=== PATIENT | male | born 1965 | race Caucasian/White ===

== ENCOUNTER 2017-12-19 17:23 | Emergency (ER) | payer MEDICARE, OTHER ==
[~2017-12-19 17:23] MED LIST: ALBU90OI6 INH; ALBU90OI61 INH; AMOCLA500 PO; AMOX500 PO; ASPI325EC; ASPI81CH PO; ATEN25 PO; ATOR40TA; ATOR80 PO; AZIT250 PO; Amoxicillin500 MG PO; Bactrim Ds Tab1 EACH PO; CEPH500 PO; CLOP75 PO; CYCL10 PO; Cyclobenzaprine5 MG PO; DOCU100; HYDACE5; HYDACE5 PO; IBUP600 PO; IBUP800 PO; LISI5 PO; MEDICAL MARIJUANA; METO25ER; METO50ER; MORP15ER; MORP15ER PO; MULVITMINF; NAPR500 PO; NITR.4SL SL; OXYACE5T PO; OXYACE7.5T PO; OXYC10TA19; OXYC5 PO; PENVK500 PO; PRED10 PO; PRED20 PO; PROCODE120 PO; Peridex480 ML PO; Prilosec20 MG PO; RXANTBENOT AU; RXPROCODSY PO; SULTRIDS PO; TRAM50 PO; Ultram50 MG PO; Zantac150 MG PO
[2018-05-31] MEDS ORDERED: Zofran8 MG PO (18:44)
== END 2017-12-19 19:35 | disposition left against medical advice (07) ==
LOC: ER 17:23
DX: Z53.21 Procedure and treatment not carried out due to patient leaving prior to being seen by health care provider (principal)

== ENCOUNTER → 2019-11-16 | Outpatient (CLI) | payer MEDICARE, OTHER ==
[~2019-11-16] MED LIST changes: +Zofran8 MG PO
[2019-11-19 13:57] LABS: Stool Occult Bld Immuno 1 Negative (NEGATIVE)
== END | disposition home or self-care (01) ==
LOC: LAB 12:55 → LAB SHORT 12:55
PROVIDERS: Registered Nurse
DX: Z12.11 Encounter for screening for malignant neoplasm of colon (principal)
CPT/HCPCS: G0328

== ENCOUNTER → 2025-07-15 | Outpatient (CLI) | payer OTHER ==
[2025-07-22 06:42] LABS: Stool Occult Bld Immuno 1 Negative (NEGATIVE)
== END | disposition home or self-care (01) ==
LOC: LAB SHORT 12:00 → LAB 12:00
DX: Z12.11 Encounter for screening for malignant neoplasm of colon (principal)
CPT/HCPCS: G0328